=== PATIENT | female | born 1990 | race Caucasian/White ===

== ENCOUNTER 2017-01-20 20:31 | Emergency (ER) | payer MEDICAID ==
[2017-01-20 20:37] VITALS: BP 124/75; PULSE 92; RESP 18; TEMP 98.1; O2SAT 96
--- NOTE | 2017-01-20 20:57 | EDPHY ---
H & P Time Seen by Provider: 01/20/17 20:33 HPI/ROS: CHIEF COMPLAINT: foreign body left ear HISTORY OF PRESENT ILLNESS: 26-year-old female presents emergency department reporting an insect flew into her left ear while walking outside tonight. Patient reports she feels it moving in her ear. No pain, no other complaints. Smoking Status: Never smoked Physical Exam: GEN: Awake, alert, oriented, no acute distress HEENT: Left ear with moth visible in external canal using otoscope. RESP: nl resp effort MSK: Normal appearing SKIN: No rash Constitutional: Initial Vital Signs Temperature (C) 36.7 C 01/20/17 20:34 Heart Rate 92 01/20/17 20:34 Respiratory Rate 18 01/20/17 20:34 Blood Pressure 124/75 H 01/20/17 20:34 O2 Sat (%) 96 01/20/17 20:34 O2 Delivery Mode Room Air Allergies/Adverse Reactions: No Known Allergies Allergy (Unverified 01/20/17 20:33) Home Medications: Medication Instructions Recorded Abilify 01/20/17 Lamictal 01/20/17 Wellbutrin Sr 01/20/17 Zantac 01/20/17 MDM/Departure - MDM ED Course/Re-evaluation: During exam with otoscope, a moth flew out of her ear. No abrasions, lacerations or trauma to external canal or TM. - Depart Disposition: Home, Routine, Self-Care Clinical Impression: Foreign body in ear Qualifiers: Encounter type: initial encounter Laterality: left Qualified Code(s): T16.2XXA - Foreign body in left ear, initial encounter Condition: Good Instructions: Ear Foreign Body (ED) Additional Instructions: Return to the emergency department as needed for any further concerns. Referrals: Lillie Luciano MD [Primary Care Provider] - Follow Up Only If Needed
== END 2017-01-20 21:03 | disposition home or self-care (01) ==
DX: T16.2XXA Foreign body in left ear, initial encounter (principal); X58.XXXA Exposure to other specified factors, initial encounter; Y99.8 Other external cause status

== ENCOUNTER 2017-03-02 21:16 | Emergency (ER) | payer MEDICAID ==
[2017-03-02] MEDS ORDERED: ONDANSETRON DISINTEGRATING 4 MG TAB PO ONE (21:37)
[2017-03-02] MEDS ORDERED: predniSONE 20 MG TAB PO ONE (21:37)
[2017-03-02] MEDS ORDERED: FAMOTIDINE 20 MG TAB PO ONE (21:37)
[2017-03-02 22:17] VITALS: BP 99/68; PULSE 85; RESP 17; TEMP 98.8; O2SAT 98
--- NOTE | 2017-03-02 22:24 | EDPHY ---
H & P Stated Complaint: Allergic Rxn [id number] etology Time Seen by Provider: 03/02/17 21:55 HPI/ROS: Chief Complaint: Allergic reaction HPI: 18-year-old female with a history of multiple allergies started having the sensations of her ankles itching starting at about 8 o'clock this evening. Sensation per his upper body to her trunk and arms. Patient started having the sensation that her throat was closing. She took 2 over on Zyrtec and then took 50 mg of Benadryl. Patient states she is now feeling better. She is improved. Sensation of tightness in her throat is gone. Has a history of similar episodes in the past but is not identified any causative agent. She has not seen an precision optics technician or had allergy testing done. Denies any new foods. Last ate at 4 o'clock this afternoon. Denies any new soaps or other environmental exposures. ROS: 10 point Review of Systems is negative except as noted in the HPI. PMH: Seasonal allergies, GERD, depression Social History: No smoking, rare alcohol, no recreational drug use Family History: non-contributory Physical Exam: Gen: Awake, Alert, No Distress HEENT: Nose: no rhinorrhea Eyes: PERRLA, EOMI Mouth: Moist mucosa Neck: Supple, no JVD Chest: nontender, lungs clear to auscultation Heart: S1, S2 normal, no murmur Abd: Soft, non-tender, no guarding Back: no CVA tenderness, no midline tenderness Ext: no edema, non-tender Skin: no rash Neuro: CN II-XII intact, Sensation grossly intact, Strength 5/5 in bilateral upper and lower extremities - Personal History LMP (Females 10-55): 15-21 Days Ago Current Tetanus/Diphtheria Vaccine: Unsure Current Tetanus Diphtheria and Acellular Pertussis (TDAP): Unsure - Medical/Surgical History Hx Asthma: No Hx Chronic Respiratory Disease: No Hx Diabetes: No Hx Cardiac Disease: No Hx Renal Disease: No Hx Cirrhosis: No Hx Alcoholism: No Hx HIV/AIDS: No Hx Splenectomy or Spleen Trauma: No Other PMH: depression, GERD. wisdom teeth - Social History Smoking Status: Never smoked Constitutional: Initial Vital Signs Temperature (C) 36.7 C 03/02/17 21:17 Heart Rate 112 H 03/02/17 21:17 Respiratory Rate 18 03/02/17 21:17 Blood Pressure 103/76 03/02/17 21:17 O2 Sat (%) 96 03/02/17 21:17 O2 Delivery Mode Room Air Allergies/Adverse Reactions: No Known Allergies Allergy (Verified 03/02/17 21:23) Home Medications: Medication Instructions Recorded Abilify 01/20/17 Lamictal 01/20/17 Wellbutrin Sr 01/20/17 Zantac 01/20/17 Zyrtec 03/02/17 predniSONE 60 mg PO DAILY #9 tab 03/02/17 Medical Decision Making ED Course/Re-evaluation: 26-year-old with an improving allergic reaction. No current airway involvement. She is feeling better. Went to go home. She has gotten prednisone here. Will send her home with prescription for a short course of prednisone. Continue Benadryl. Follow up with her primary care physician for allergy referral in testing. Return for worsening. - Data Points Medications Given: Discontinued Medications Famotidine (Pepcid) 20 mg PO EDNOW ONE Stop: 03/02/17 21:38 Last Admin: 03/02/17 21:41 Dose: 20 mg Ondansetron HCl (Zofran Odt) 4 mg PO EDNOW ONE Stop: 03/02/17 21:38 Last Admin: 03/02/17 21:41 Dose: 4 mg Prednisone (Prednisone) 60 mg PO EDNOW ONE Stop: 03/02/17 21:38 Last Admin: 03/02/17 21:41 Dose: 60 mg Departure - Departure Disposition: Home, Routine, Self-Care Clinical Impression: Allergic reaction Condition: Good Instructions: Allergies (ED) Additional Instructions: Continue taking Benadryl, 50 mg, every 6 hours for the next 24 hours. Take prednisone 60 mg once a day for the next 3 days. Follow up with her primary care physician in 2 days for further evaluation and referral to an precision optics technician. Return to the emergency department for increasing shortness of breath, itching, difficulty breathing, or any other concerns. Referrals: Lillie Luciano MD [Primary Care Provider] - As per Instructions Prescriptions: predniSONE 60 mg PO DAILY #9 tab
== END 2017-03-02 22:37 | disposition home or self-care (01) ==
DX: T78.40XA Allergy, unspecified, initial encounter (principal)